=== PATIENT | male | born 1965 | race African-American/Black ===

== ENCOUNTER 2020-07-15 07:17 | Outpatient (CLI) | payer OTHER ==
--- NOTE | 2020-07-15 11:06 | MRI Report ---
PROCEDURE: Knee LT W/O INDICATIONS: INTERNAL DERANGEMENT OF KNEE TECHNIQUE: Noncontrast sagittal PD fast spin echo and T2 fast spin echo with fat saturation, sagittal 3-D gradie nt sequence with fat saturation; coronal T1 spin echo and PD fast spin echo with fat saturation, and axial PD fast spin echo with fat saturation through the knee. COMPARISON: None. FINDINGS: Image quality: Excellent. Menisci: There is a horizontally oriented longitudinal tear in the posterior horn of the medial meni scus involving the inferior articular surface and free edge. This extends into the meniscal root liga ment without rupture. Mild peripheral extrusion of the medial meniscus demonstrated as well as mild d egenerative signal. The lateral meniscus is diminutive in appearance suggestive of severe degenerativ e tearing although the findings may also reflect sequelae of prior partial meniscectomy. There is deg enerative tearing within the remnant lateral meniscus extending to the meniscal root ligament. No def inite rupture but there is peripheral extrusion of the lateral meniscus. Cruciate ligaments: The anterior cruciate ligament is thickened with intrasubstance T2 hyperintensit y which may represent sequelae of a prior sprain or chronic myxoid degeneration. The majority of the fibers appear intact. The posterior cruciate ligament appears intact. Medial structures: Medial structures: The medial collateral ligament appears intact. The semimembr anosus tendon insertions appear intact. Visualized portions of the pes anserinus tendons appear norm al. No abnormal bursal fluid. Lateral structures: The fibular collateral ligament and biceps femoris tendon appear intact. The po pliteal tendon and the meniscofemoral ligaments appear intact. Anterior structures: The quadriceps and patellar tendons appear intact. Patellar alignment is ang l. No femoral trochlear dysplasia or ventral trochlear prominence. No edema in the infrapatellar fa t pad. Bones and cartilage: No bone marrow contusions or fractures. There is prominent tricompartmental ost eophytosis. Severe cartilage thinning is demonstrated in the lateral compartment with areas of appare nt full-thickness cartilage loss. There is associated subchondral edema and sclerosis along the later al femoral condyle and lateral tibial plateau. In the medial compartment, there is moderate cartilage thinning with chondral fissuring associated with subchondral edema and cystic change along the media l femoral condyle and medial tibial plateau. In the patellofemoral compartment, there is mild to mode rate cartilage thinning with superficial chondral fissuring. Joint space: There is a small joint effusion with numerous small indistinct intermediate signal inte nsity filling defects suggestive of synovitis or small joint bodies. No Castillo?s cyst. Normal appeari ng synovial plicae are incidentally noted. IMPRESSION: 1. Diminutive appearance of the lateral meniscus suggestive of severe degenerative tearing. There is involvement of the meniscal root ligament and associated peripheral extrusion. No definite rupture. 2. Tearing in the posterior horn of the medial meniscus also extending to the meniscal root ligament associated with mild peripheral extrusion. No evidence of rupture. 3. 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 4. 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 5. Small joint effusion with filling defects suggestive of synovitis or small joint bodies. Reviewed by: Filipe García MD on 07/15/2020 11:05 AM PDT Approved by: Filipe García MD on 07/15/2020 11:05 AM PDT Station ID: [id number]
== END 2020-07-15 07:18 | disposition home or self-care (01) ==
LOC: DI 07:17
PROVIDERS: ATTEND Preventive Medicine Public Health & General Preventive Medicine
DX: S83.242A Other tear of medial meniscus, current injury, left knee, initial encounter (principal); S83.282A Other tear of lateral meniscus, current injury, left knee, initial encounter; M17.12 Unilateral primary osteoarthritis, left knee

== ENCOUNTER 2020-10-17 09:28 | Outpatient (CLI) | payer OTHER ==
--- NOTE | 2020-10-17 10:55 | MRI Report ---
PROCEDURE: Lumbar Spine W/O INDICATIONS: LT LUMBAR RADICULOPATHY TECHNIQUE: Noncontrast sagittal T1 spin echo and T2 fast echo, sagittal STIR, axial T1 and T2 fast spin echo thr ough the lumbar spine. In cases with scoliosis, additional coronal T2 fast spin echo may be performe d. COMPARISON: 04/14/2016 FINDINGS: Image quality: Motion artifact is noted. Alignment and Curvature: There is normal bony alignment. Bone Marrow: Marrow is of normal overall signal. No acute vertebral body compression fractures. Spinal Cord: Conus medullaris terminates at the L1 level. Visualized cord demonstrates normal signa l and size. Paraspinous Soft Tissues: No paravertebral masses. T12-L1: Normal in appearance. L1-L2: The disc height and disc signal are well preserved. Note is made of an annular fissure post eriorly. Moderate disc bulge is seen at this level. Mild facet hypertrophy is seen. Moderate bi lateral neural foraminal narrowing is seen. Moderate central canal narrowing is seen. These degen erative changes have progressed when compared to the prior examination. L2-L3: The disc height is well-preserved. There is loss of disc signal seen. Moderate to promine nt disc bulge is seen, with a central disc protrusion. Note is made of an annular fissure posteriorly . Moderate facet hypertrophy is seen. Moderate to severe bilateral neuroforaminal narrowing can be seen. Compression is seen upon the exiting nerve roots. Moderate to severe central canal narrowing is seen at this level. These degenerative changes have progressed when compared to the prior examina tion. L3-L4: The disc height and disc signal are relatively well-preserved. Moderate disc bulge is seen at this level. Mild facet hypertrophy is seen. There is at least moderate bilateral neuroforaminal narrowing seen. Moderate central canal narrowing is seen. Mild progression compared to 2016. L4-L5: Mild loss of disc height and disc signal are seen. Note is made of an annular fissure pos teriorly. Moderate disc bulge is seen, with a central disc protrusion. Protruding components are als o seen involving both foraminal regions. At least moderate facet hypertrophy can be seen. Associated hypertrophy of the ligamentum flavum can be seen. There is moderate to severe bilateral neuroforamin al narrowing seen, right worse than left. Compression is seen upon the exiting nerve roots. Moderat e to severe central canal narrowing is seen at this level. These degenerative changes are worse than in 2016. L5-S1: Moderate loss of disc height and signal are seen. Moderate disc bulge is seen, with a centra l disc protrusion, which is also eccentric to the right, with involvement of the right lateral recess . Mild to moderate facet hypertrophy is seen. There is moderate to severe bilateral neuroforaminal na rrowing seen, right worse than left. Mild to moderate central canal narrowing is seen. These degenera tive changes are progressed compared to 2016. IMPRESSION: Multiple levels of lumbar spine degenerative change are seen, which have progressed comp ared to 2016. Reviewed by: Sukumar Aparicio MD on 10/17/2020 9:54 AM [place] Approved by: Sukumar Aparicio MD on 10/17/2020 9:54 AM [facility] Station ID: [id number]
== END 2020-10-17 09:29 | disposition home or self-care (01) ==
LOC: DI 09:28
PROVIDERS: ATTEND Preventive Medicine Public Health & General Preventive Medicine
DX: M47.816 Spondylosis without myelopathy or radiculopathy, lumbar region (principal); M51.26 Other intervertebral disc displacement, lumbar region; M48.061 Spinal stenosis, lumbar region without neurogenic claudication; M51.27 Other intervertebral disc displacement, lumbosacral region; M48.07 Spinal stenosis, lumbosacral region
CPT/HCPCS: 72148

== ENCOUNTER 2020-10-31 13:43 | Outpatient (CLI) | payer BC ==
--- NOTE | 2020-10-31 16:49 | XRAY Report ---
PROCEDURE: Chest 2 View X-Ray INDICATIONS: R06.00, R07.9 TECHNIQUE: 2 view(s) of the chest. COMPARISON: None. FINDINGS: Surgical changes and devices: None. Lungs and pleura: No pleural effusions or pneumothorax. Lungs are clear. Mediastinum: Mediastinal contours are normal. Heart size is normal. Bones and chest wall: No suspicious bony abnormalities. Soft tissues appear unremarkable. IMPRESSION: Mildly reduced inspiratory volume on the frontal view, no evidence of pneumonia or CHF a t this time. Reviewed by: Bernabe Brown MD on 10/31/2020 4:48 PM [facility] Approved by: Bernabe Brown MD on 10/31/2020 4:48 PM [facility] Station ID: [id number]
== END 2020-10-31 13:44 | disposition home or self-care (01) ==
LOC: DI.N 13:43
PROVIDERS: ATTEND Physician Assistant
DX: R06.00 Dyspnea, unspecified (principal); R07.9 Chest pain, unspecified

== ENCOUNTER 2020-11-16 06:44 | Outpatient (CLI) | payer BC ==
[2020-11-16] MEDS ORDERED: IOVERSOL 320 100 ML VIAL IVP ONE ×2 (07:07→16:52)
--- NOTE | 2020-11-16 17:34 | CT Report ---
PROCEDURE: ANGIO HEAD W/WO INDICATIONS: NEW HEADACHE SYMPTOMS CONTRAST: IV CONTRAST: Optiray 320 ml: 80 PO CONTRAST: *NO PO CONTRAST TECHNIQUE: Precontrast 4.5 mm thick angled axial sections acquired from the foramen magnum to the vertex. Afte r the administration of intravenous contrast, 1 mm thick sections acquired through the [place] of [place] is. Postcontrast 4.5 mm thick sections then re-acquired from the foramen magnum to the vertex. 3-di mensional fwnicrz-jbosafisc-kxdfmmedyu (MIP) and/or volume rendering reformats were acquired of the c entral intracranial vasculature. For radiation dose reduction, the following was used: automated ex posure control, adjustment of mA and/or kV according to patient size. COMPARISON: None. FINDINGS: Image quality: Excellent. Anterior circulation: Intracranial internal carotid arteries are normal in size and flow. The flow within the paired anterior cerebral arteries is normal and symmetric. The flow within the middle cer ebral arteries is normal and symmetric. The anterior communicating artery is seen. No aneurysms are seen. Posterior circulation: Visualized portions of the vertebral arteries demonstrate normal caliber, and join to form a normal appearing basilar artery. Flow within the posterior cerebral arteries is norm al and symmetric. No aneurysms are seen. CSF spaces: Ventricles are normal in size and shape. Basal cisterns are patent. No extra-axial flu id collections. Brain: No midline shift. No intracranial bleeds or masses. Feng-white matter interface appears int act. Skull and face: Calvarium and facial bones appear intact, without suspicious lesions. Sinuses: Visualized sinuses and mastoids are clear. IMPRESSION: No acute intracranial abnormality. No evidence of intracranial arterial aneurysm or intracranial vascular malformation. Reviewed by: Ludwin Rodrigez MD on 11/16/2020 5:33 PM PST Approved by: Ludwin Rodrigez MD on 11/16/2020 5:33 PM PST Station ID: [id number]
== END 2020-11-16 06:45 | disposition home or self-care (01) ==
LOC: DI 06:44
PROVIDERS: ATTEND Family Medicine
DX: G44.52 New daily persistent headache (NDPH) (principal)
CPT/HCPCS: 70496; Q9967

== ENCOUNTER 2022-04-16 12:47 | Outpatient (CLI) | payer OTHER | END 2022-04-16 12:48 | disposition home or self-care (01) | LOC: CAM 12:47 | PROVIDERS: ATTEND Physician Assistant | DX: R51.9 Headache, unspecified (principal); M54.2 Cervicalgia | CPT/HCPCS: 97810; 97811 ==

== ENCOUNTER 2022-04-30 14:27 | Outpatient (CLI) | payer OTHER | END 2022-04-30 14:28 | disposition home or self-care (01) | LOC: CAM 14:27 | PROVIDERS: ATTEND Physician Assistant | DX: R51.9 Headache, unspecified (principal); M54.2 Cervicalgia | CPT/HCPCS: 97813; 97814 ==

== ENCOUNTER 2022-12-14 08:51 | Day surgery (SDC) | payer OTHER ==
[2022-12-14] MEDS ORDERED: LACTATED RINGERS 1,000 ML IV ONE (08:59)
[2022-12-14] MEDS ORDERED: PROPOFOL 500 MG/50 ML 500 MG/50 ML VIAL ONE (09:39)
--- NOTE | 2022-12-14 09:44 | ANESTHESIA ---
Pre-Anesthesia VS, & Labs - Diagnosis screening - Procedure colonoscopy Vital Signs: Temp Pulse Resp BP Pulse Ox O2 Flow Rate 36.9 C 99 18 165/101 H 98 12/14/22 09:02 12/14/22 09:02 12/14/22 09:02 12/14/22 09:02 12/14/22 09:02 Height: 5 ft 7 in Weight (kg): 97 kg Body Mass Index: 33.5 BMI Classification: Obese - NPO Other (prep as directed) Home Medications and Allergies Home Medications: Ambulatory Orders Amitriptyline [Elavil] 1 tab PO DAILY 12/13/22 Lisinopril/Hydrochlorothiazide [Zestoretic 20-25 mg Tablet] 1 tab PO DAILY 12/13/22 Naproxen 1 tab PO PRN PRN 12/13/22 Amitriptyline [Elavil] 1 tab PO DAILY 12/13/22 Lisinopril/Hydrochlorothiazide [Zestoretic 20-25 mg Tablet] 1 tab PO DAILY 12/13/22 Naproxen 1 tab PO PRN PRN 12/13/22 Allergies/Adverse Reactions: Allergies Allergy/AdvReac Type Severity Reaction Status Date / Time No Known Drug Allergies Allergy Verified 12/13/22 12:58 Anes History & Medical History - Anesthetic History Anesthesia Complications: reports: No previous complications - Medical History Cardiovascular: reports: Hypertension, Other Pulmonary: reports: None Gastrointestinal: reports: GERD Urinary: reports: None Musculoskeletal: reports: Chronic back pain Endocrine/Autoimmune: reports: None Skin: reports: None - Surgical History Orthopedic: reports: Arthroscopic surgery Exam General: Alert, Oriented x3 Dental: WNL Mouth Opening: Greater than 4 Fingerbreadths Neck Mobility: Normal Mallampati classification: II Thyromental Distance: greater than 6 cm Respiratory: Lungs clear Cardiovascular: Regular rate Plan Anesthesia Type: Total IV Consent for Procedure(s) Verified and Reviewed: Yes Code Status: Attempt Resuscitation ASA classification: 2-Mild systemic disease Is this case an emergency?: No
[2022-12-14] MEDS ORDERED: LACTATED RINGERS 700 ML IV ONE (10:42)
[2022-12-14 11:13] VITALS: BP 128/79
== END 2022-12-14 08:52 | disposition home or self-care (01) ==
LOC: SDS 08:51
PROVIDERS: ATTEND Surgery
PROC: 0DBP8ZX Excision of Rectum, Via Natural or Artificial Opening Endoscopic, Diagnostic (ICD-10-PCS; principal; 2022-12-14 10:00)
DX: Z12.11 Encounter for screening for malignant neoplasm of colon (principal); D12.8 Benign neoplasm of rectum; E66.9 Obesity, unspecified; I10 Essential (primary) hypertension; Z68.33 Body mass index [BMI] 33.0-33.9, adult
CPT/HCPCS: 45380; J7120

== ENCOUNTER 2023-04-04 09:00 | Outpatient (CLI) | payer OTHER ==
[2023-04-04 12:08] LABS: EOSINOPHILS # (AUTO) 0.1 10^3/uL (0.0-0.7); EOSINOPHILS % (AUTO) 3.4 %; HCT - HEMATOCRIT 52.4 % (42.0-52.0); HGB - HEMOGLOBIN 17.6 g/dL (14.0-18.0); LYMPHOCYTES # (AUTO) 1.2 10^3/uL (1.5-3.5); LYMPHOCYTES % (AUTO) 28.1 %; MEAN CORPUSCULAR HEMOGLOBIN 30.1 pg (27.0-31.0); MEAN CORPUSCULAR HGB CONC 33.6 g/dL (32.0-36.0); MEAN CORPUSCULAR VOLUME 89.6 fL (80.0-94.0); MEAN PLATELET VOLUME 11.2 fL (7.4-11.4); MONOCYTES # (AUTO) 0.4 10^3/uL (0.0-1.0); MONOCYTES % (AUTO) 8.4 %; NEUTROPHILS # (AUTO) 2.5 10^3/uL (1.5-6.6); NEUTROPHILS % (AUTO) 58.9 %; PLT - PLATELET COUNT 215 10^3/uL (130-450); RED BLOOD COUNT 5.85 10^6/uL (4.70-6.10); RED CELL DISTRIBUTION WIDTH 12.3 % (12.0-15.0); WHITE BLOOD COUNT 4.2 x10^3/uL (4.8-10.8)
[2023-04-04 12:20] LABS: ALBUMIN/GLOBULIN RATIO 1.1 (1.0-2.2); BILIRUBIN,TOTAL 0.9 mg/dL (0.2-1.0); CALCIUM 9.4 mg/dL (8.5-10.3); CREATININE 1.2 mg/dL (0.6-1.2); TOTAL PROTEIN 7.7 g/dL (6.7-8.2)
[2023-04-04 12:33] LABS: THYROID STIMULATING HORMONE 1.01 uIU/mL (0.34-5.60)
[2023-04-04 12:45] LABS: ESTIMATED AVERAGE GLUCOSE 123 mg/dL (70-100); HEMOGLOBIN A1c% 5.9 % (4.27-6.07)
== END 2023-04-04 09:15 | disposition home or self-care (01) ==
LOC: LAB.N 09:00
PROVIDERS: ATTEND Registered Nurse
DX: M54.2 Cervicalgia (principal); R47.9 Unspecified speech disturbances; R51.9 Headache, unspecified; H53.8 Other visual disturbances
CPT/HCPCS: 36415; 80053; 83036; 84443; 85025